=== PATIENT | female | born 1995 | race Caucasian/White ===

== ENCOUNTER 2016-11-30 05:37 | Emergency (ER) | payer MEDICAID, OTHER ==
[2016-11-30 05:45] VITALS: BP 130/85
[2016-11-30] MEDS ORDERED: Ondansetron 4 MG/2 ML SDV IVPUSH ONE (05:54)
[2016-11-30] MEDS ORDERED: Sodium Chloride 0.9% 1,000 ML IV SCH (06:00)
--- NOTE | 2016-11-30 06:02 | EDM.PDOC ---
ED HPI RENAL/ - General Chief Complaint: Genitourinary Problem Stated Complaint: FEVER/BACK PAIN Time Seen by Provider: 11/30/16 05:43 Source of Information: Reports: Patient, Old records, RN notes reviewed History Limitations: Reports: No limitations - History of Present Illness INITIAL COMMENTS - FREE TEXT/NARRATIVE: The patient states that she developed lower back pain about 1-1/2 to 2 days ago. She has had gross hematuria for the past 2 days. She denies urinary symptoms, such as dysuria, urinary frequency, and urinary urgency. She has had chills since yesterday and was found to have a fever of 102.4 here in the ED. She has had nausea, but no vomiting, constipation, or diarrhea. She states that she has had similar symptoms in the past, due to kidney stones. Her LMP was about one month ago, but she states that she is not on her menstrual period. - Related Data Allergies/ADRs: Allergies Allergy/AdvReac Type Severity Reaction Status Date / Time trazodone Allergy Hives Verified 11/30/16 05:46 metoclopramide HCl AdvReac Anxiety Verified 11/30/16 05:46 [From Reglan] Past Medical History Genitourinary History: Reports: Renal calculus [employer] History: Reports: Neurological History: Reports: MS (According to the patient. Untreated) - Past Surgical History HEENT Surgical History: Reports: Tonsillectomy Female Surgical History: Reports: section (x 2), D&C (x 1), Lithotripsy/ESWL (x 3) Social & Family History - Family History Family Medical History: Noncontributory - Tobacco Use Smoking Status *Q: Current Every Day Smoker Years of Tobacco use: 2 Packs/Tins Daily: 0.5 Second Hand Smoke Exposure: Yes - Alcohol Use Alcohol Use History: No Days Per Week of Alcohol Use: 0 - Recreational Drug Use Recreational Drug Use: Yes Drug Use in Last 12 Months: Yes Recreational Drug Type: Reports: Heroin (last 2-3 days ago), Methamphetamine ( last 2 days ago) - Living Situation & Occupation Living situation: Reports: single, with significant other (Boyfriend) Occupation: unemployed ED ROS GENERAL - Review of Systems Review Of Systems: See Below Constitutional: Reports: no symptoms HEENT: Reports: No symptoms Respiratory: Reports: No Symptoms Cardiovascular: Reports: No symptoms Endocrine: Reports: no symptoms GI/Abdominal: Reports: No symptoms : Reports: no symptoms Musculoskeletal: Reports: no symptoms Skin: Reports: no symptoms Neurological: Reports: No Symptoms Psychiatric: Reports: No symptoms Hematologic/Lymphatic: Reports: no symptoms Immunologic: Reports: no symptoms ED EXAM, RENAL/ - Physical Exam Exam: See Below Exam Limited By: No limitations General Appearance: alert, WD/WN, mild distress (Appears uncomfortable) Eye Exam: bilateral eye: EOMI, normal inspection Ears: normal external exam, hearing grossly normal Nose: normal inspection, no blood Throat/Mouth: Normal inspection, Normal lips, Normal voice, No airway compromise Head: atraumatic, normocephalic Neck: normal inspection, full range of motion Respiratory/Chest: no respiratory distress, lungs clear, normal breath sounds, no accessory muscle use, chest non-tender Cardiovascular: normal peripheral pulses, regular rate, rhythm, no gallop, no JVD, no murmur, no rub GI/Abdominal: normal bowel sounds, soft, no organomegaly, no distention, no abnormal bruit, no mass, tender (To the suprapubic and right lower quadrant regions. Essentially nontender elsewhere.) Back Exam: normal inspection, full range of motion, CVA tenderness (L) (Greater on the left than the right), CVA tenderness (R) Extremities: normal inspection, normal range of motion, no pedal edema, normal capillary refill Neurological: alert, oriented, normal cognition, no motor/sensory deficits Psychiatric: normal affect Skin Exam: Warm, Dry, Intact, Normal color, No rash Lymphatic: no adenopathy Course - Vital Signs Last Recorded V/S: Last Vital Signs Temp 39.1 C H 11/30/16 05:41 Pulse 125 H 11/30/16 05:41 Resp 18 11/30/16 05:41 BP 130/85 11/30/16 05:41 Pulse Ox 98 11/30/16 05:41 - Orders/Labs/Meds Orders: Active Orders 24 hr Category Date Time Status CBC WITH MANUAL DIFF [HEME] Stat Lab 11/30/16 05:50 Results COMPREHENSIVE METABOLIC PN,CMP [CHEM] Stat Lab 11/30/16 05:50 Received LIPASE [CHEM] Stat Lab 11/30/16 05:50 Received UA W/MICROSCOPIC [URIN] Stat Lab 11/30/16 06:00 Results Sodium Chloride 0.9% [Normal Saline] 1,000 ml Med 11/30/16 06:00 Active IV ASDIRECTED Medication Orders Sodium Chloride (Normal Saline) 1,000 mls @ 150 mls/hr IV ASDIRECTED GAIL Last Admin: 11/30/16 06:04 Dose: 150 mls/hr Labs: Laboratory Tests 11/30/16 11/30/16 11/30/16 Range/Units 05:50 06:00 06:00 WBC 7.70 (3.98-10.04) K/mm3 RBC 5.10 (3.98-5.22) M/mm3 Hgb 13.9 (11.2-15.7) gm/L Hct 40.6 (34.1-44.9) % MCV 79.6 (79.4-94.8) fl MCH 27.3 (25.6-32.2) pg MCHC 34.2 (32.2-35.5) g/dl RDW Std Deviation 45.7 (36.4-46.3) fL Plt Count 143 L (182-369) K/mm3 MPV 10.2 (9.4-12.3) fl Urine Color Yellow (Yellow) Urine Appearance Slt cloudy H (Clear) Urine pH 6.0 (5.0-8.0) Ur Specific [place] > or = 1.030 (1.005-1.030) Urine Protein 2+ H (Negative) Urine Glucose (UA) Negative (Negative) Urine Ketones 2+ H (Negative) Urine Occult Blood 3+ H (Negative) Urine Nitrite Positive H (Negative) Urine Bilirubin Negative (Negative) Urine Urobilinogen 0.2 (0.2-1.0) Ur Leukocyte Esterase 1+ H (Negative) Urine HCG, Qual Negative (NEGATIVE) Meds: Medications Generic Name Dose Route Start Last Admin Trade Name Freq PRN Reason Stop Dose Admin Sodium Chloride 1,000 mls @ 150 mls/hr 11/30/16 06:00 11/30/16 06:04 Normal Saline IV 150 mls/hr ASDIRECTED GAIL Administration Discontinued Medications Generic Name Dose Route Start Last Admin Trade Name Freq PRN Reason Stop Dose Admin Ketorolac Tromethamine 30 mg 11/30/16 06:10 Toradol IVPUSH 11/30/16 06:11 ONETIME STA Ondansetron HCl 4 mg 11/30/16 05:54 11/30/16 06:04 Zofran IVPUSH 11/30/16 05:55 4 mg ONETIME ONE Administration - Re-Assessments/Exams Free Text/Narrative Re-Assessment/Exam: 11/30/16 05:57 After my history and physical examination, the patient's boyfriend came out to the nursing station and informed me that the patient has been doing heroin, as recently as a few days ago. 11/30/16 06:14 Informed that the patient wants to leave AMA because I did not order or something stronger than the Toradol. She reportedly told the nurse that she is going to [place] and that "next time I will lie, so that I can get what I want. " Given the patient's history of drug abuse, including recent use of heroin, not disclosed by the patient herself, it was my intention to see the patient's urinalysis results before ordering an opioid - if there is blood in the urine, I would likely order a narcotic, as the likelihood of a ureterolith would be high. If there is no blood in the urine, I would prefer to hold off until there is evidence of a painful process. Based on the patient's willingness to leave AMA over not getting narcotics, it appears that the patient is drug seeking. Departure - Departure Time of Disposition: 06:18 Disposition: Against Medical Advice 07 Condition: fair Clinical Impression: Drug-seeking behavior, Fever Referrals: PCP,None [Primary Care Provider] - - My Orders Last 24 Hours: My Active Orders 11/30/16 05:50 CBC WITH MANUAL DIFF [HEME] Stat COMPREHENSIVE METABOLIC PN,CMP [CHEM] Stat LIPASE [CHEM] Stat 11/30/16 06:00 UA W/MICROSCOPIC [URIN] Stat Sodium Chloride 0.9% [Normal Saline] 1,000 ml IV ASDIRECTED - Assessment/Plan Last 24 Hours: My Active Orders 11/30/16 05:50 CBC WITH MANUAL DIFF [HEME] Stat COMPREHENSIVE METABOLIC PN,CMP [CHEM] Stat LIPASE [CHEM] Stat 11/30/16 06:00 UA W/MICROSCOPIC [URIN] Stat Sodium Chloride 0.9% [Normal Saline] 1,000 ml IV ASDIRECTED
[2016-11-30] MEDS ORDERED: Ketorolac 30 MG/ML SDV IVPUSH STA (06:10)
== END 2016-11-30 06:15 | disposition left against medical advice (07) ==
LOC: JD.ED 05:37
DX: Z76.5 Malingerer [conscious simulation] (principal); R50.9 Fever, unspecified; G35 Multiple sclerosis; F17.200 Nicotine dependence, unspecified, uncomplicated; Z88.8 Allergy status to other drugs, medicaments and biological substances
CPT/HCPCS: 36415; 80053; 81001; 81025; 83690; 85025; 96361; 96374; 99284; J2405; J7040; P9612

== ENCOUNTER 2018-10-17 13:30 | Emergency (ER) | payer BC, MEDICAID ==
[2018-10-17 13:39] VITALS: BP 127/86
[2018-10-17] MEDS ORDERED: Sodium Chloride 0.9% 10 ML Syringe FLUSH PRN (13:50)
[2018-10-17] MEDS ORDERED: Sodium Chloride 0.9% 1,000 ML IV SCH (14:00)
--- NOTE | 2018-10-17 15:07 | CT ---
Head CT Technique: Multiple axial sections through the brain were obtained. Intravenous contrast was not utilized. Comparison: Prior head CT exam of 09/06/14. Previous MRI brain of 03/27/15 is also available. Findings: Ventricles along with basal cisterns and sulci over the convexities appear within normal limits for the patient's age. Areas of increase signal noted on previous MRI not well seen on current head CT exam. No evidence of intracranial hemorrhage. No midline shift or mass effect is seen. Bone window settings were reviewed which show no acute calvarial abnormality. Visualized sinuses are clear. Impression: 1. Nothing acute is appreciated on noncontrast head CT study. Areas of increased signal noted on previous MRI are not well seen on current study. MRI could be considered to confirm stability of previous findings. Diagnostic code #1
--- NOTE | 2018-10-17 15:21 | EDM.PDOC ---
ED HPI GENERAL MEDICAL PROBLEM - General Chief Complaint: Neurological Problem Stated Complaint: [facility] Time Seen by Provider: 10/17/18 13:39 Source of Information: Reports: Patient, EMS, Family History Limitations: Reports: No Limitations - History of Present Illness INITIAL COMMENTS - FREE TEXT/NARRATIVE: The patient presents by [facility] for seizure. Her mom witnessed the seizure. It lasted about 4 minutes. The patient was stiff and had some jerking and she was gurgling. When EMS arrived, the seizure was over. This is the patient's second seizure. She had one a couple weeks ago but it did not last this long. She has MS and was seeing Dr Gipson a neurologist in [place] but he moved and she has not seen anyone for about 2 years. She has been in treatment for heroin addiction and just recently got out. She has not had any drugs since treatment. She has no headache, fever, chills, cough, chest pain, shortness of breath, abdominal pain, nausea or vomiting. She is scheduled to see another neurologist November 16. Onset: Sudden Duration: Minutes: Location: Reports: Generalized Severity: Moderate Improves with: Reports: None Worsens with: Reports: None Associated Symptoms: Reports: No Other Symptoms - Related Data Allergies Allergy/AdvReac Type Severity Reaction Status Date / Time trazodone Allergy Hives Verified 10/17/18 13:38 metoclopramide HCl AdvReac Anxiety Verified 10/17/18 13:38 [From Reglan] Home Meds: Home Meds . [No Known Home Meds] 10/17/18 [History] Past Medical History Other HEENT History: HX OF ABSCESSED TOOTH 2012, RECURRENT SINUS INFECTIONS, states "I used to have alot of mono and strep throat." Other Respiratory History: HX OF URI Other Gastrointestinal History: HEMATOCHEZIA 2012 Genitourinary History: Reports: Renal Calculus [employer] History: Reports: Other [employer] History: HX OF X2, CURRENT MISSED AND ONE PAST Other Musculoskeletal History: ARTHRALGIA Neurological History: Reports: MS Psychiatric History: Reports: Anxiety Other Psychiatric History: INSOMNIA Other Hematologic History: during - Past Surgical History HEENT Surgical History: Reports: Tonsillectomy Other GI Surgeries/Procedures: SIGMOIDOSCOPY FLEXIBLE Female Surgical History: Reports: Section, D&C, Lithotripsy/ESWL Social & Family History - Family History Family Medical History: Noncontributory - Tobacco Use Smoking Status *Q: Current Every Day Smoker Years of Tobacco use: 4 Packs/Tins Daily: 0.5 - Caffeine Use Caffeine Use: Reports: Coffee - Recreational Drug Use Recreational Drug Use: Yes Drug Use in Last 12 Months: Yes Recreational Drug Type: Reports: Heroin - Living Situation & Occupation Living situation: Reports: Single, with Significant Other Occupation: Unemployed ED ROS GENERAL - Review of Systems Review Of Systems: See Below Constitutional: Reports: No Symptoms HEENT: Reports: No Symptoms Respiratory: Reports: No Symptoms Cardiovascular: Reports: No Symptoms Endocrine: Reports: No Symptoms GI/Abdominal: Reports: No Symptoms : Reports: No Symptoms Musculoskeletal: Reports: No Symptoms - Physical Exam Exam: See Below Exam Limited By: No Limitations General Appearance: Alert, No Apparent Distress Ears: Normal External Exam Nose: Normal Inspection Throat/Mouth: Normal Inspection Head Exam: Atraumatic, Normocephalic Neck: Normal Inspection Respiratory/Chest: No Respiratory Distress, Lungs Clear, Normal Breath Sounds Cardiovascular: Regular Rate, Rhythm, No Edema, No Murmur GI/Abdominal: Soft, Non-Tender, No Organomegaly, No Mass Neuro Exam (Abbreviated): Alert, Oriented, Other (Generalized weakness) Course - Vital Signs Last Recorded V/S: Last Vital Signs Temp 97.6 F 10/17/18 13:34 Pulse 102 H 10/17/18 13:34 Resp 18 10/17/18 13:34 BP 127/86 10/17/18 13:34 Pulse Ox 99 10/17/18 13:34 - Orders/Labs/Meds Orders: Active Orders 24 hr Category Date Time Status Cardiac Monitoring [RC] . DIRECTED Care 10/17/18 13:50 Active Peripheral IV Care [RC] . DIRECTED Care 10/17/18 13:50 Active Sodium Chloride 0.9% [Normal Saline] 1,000 ml Med 10/17/18 14:00 Active IV ASDIRECTED Sodium Chloride 0.9% [Saline Flush] Med 10/17/18 13:50 Active 10 ml FLUSH ASDIRECTED PRN Peripheral IV Insertion Adult [OM.PC] Stat Oth 10/17/18 13:50 Ordered Medication Orders Sodium Chloride (Normal Saline) 1,000 mls @ 125 mls/hr IV ASDIRECTED GAIL Last Admin: 10/17/18 14:03 Dose: 125 mls/hr Sodium Chloride (Saline Flush) 10 ml FLUSH ASDIRECTED PRN PRN Reason: Keep Vein Open Last Admin: 10/17/18 14:03 Dose: 10 ml Labs: Laboratory Tests 10/17/18 10/17/18 10/17/18 Range/Units 14:05 14:05 14:05 WBC 5.94 (3.98-10.04) K/mm3 RBC 4.73 (3.98-5.22) M/mm3 Hgb 13.4 (11.2-15.7) gm/L Hct 40.4 (34.1-44.9) % MCV 85.4 (79.4-94.8) fl MCH 28.3 (25.6-32.2) pg MCHC 33.2 (32.2-35.5) g/dl RDW Std Deviation 41.5 (36.4-46.3) fL Plt Count 216 (182-369) K/mm3 MPV 9.9 (9.4-12.3) fl Neut % (Auto) 53.0 (34.0-71.1) % Lymph % (Auto) 33.7 (19.3-51.7) % [place] % (Auto) 8.2 (4.7-12.5) % Eos % (Auto) 4.4 (0.7-5.8) Baso % (Auto) 0.5 (0.1-1.2) % Neut # (Auto) 3.15 (1.56-6.13) K/mm3 Lymph # (Auto) 2.00 (1.18-3.74) K/mm3 [place] # (Auto) 0.49 H (0.24-0.36) K/mm3 Eos # (Auto) 0.26 (0.04-0.36) K/mm3 Baso # (Auto) 0.03 (0.01-0.08) K/mm3 Sodium 139 (136-145) mEq/L Potassium 4.0 (3.5-5.1) mEq/L Chloride 102 (98-107) mEq/L Carbon Dioxide 28 (21-32) mEq/L Anion Gap 13.0 (5-15) BUN 10 (7-18) mg/dL Creatinine 0.7 (0.55-1.02) mg/dL Est Cr Clr Drug Dosing 93.51 mL/min Estimated GFR (MDRD) > 60 (>60) mL/min BUN/Creatinine Ratio 14.3 (14-18) Glucose 84 (74-106) mg/dL Calcium 8.6 (8.5-10.1) mg/dL Magnesium 1.9 (1.8-2.4) mg/dl Total Bilirubin 0.4 (0.2-1.0) mg/dL AST 51 H (15-37) U/L ALT 94 H (14-59) U/L Alkaline Phosphatase 96 (46-116) U/L Total Protein 7.2 (6.4-8.2) g/dl Albumin 3.2 L (3.4-5.0) g/dl Globulin 4.0 gm/dL Albumin/Globulin Ratio 0.8 L (1-2) HCG, Qual Negative (NEGATIVE) Meds: Medications Generic Name Dose Route Start Last Admin Trade Name Freq PRN Reason Stop Dose Admin Sodium Chloride 1,000 mls @ 125 mls/hr 10/17/18 14:00 10/17/18 14:03 Normal Saline IV 125 mls/hr ASDIRECTED GAIL Administration Sodium Chloride 10 ml 10/17/18 13:50 10/17/18 14:03 Saline Flush FLUSH 10 ml ASDIRECTED PRN Administration Keep Vein Open - Re-Assessments/Exams Free Text/Narrative Re-Assessment/Exam: 10/17/18 15:41 I ordered an IV saline lock, labs and a CT of her head. The CT shows nothing acute. Her CBC looks good. Her liver enzymes are slightly elevated. Her HCG is negative. She has not had anymore seizure activity. I have ordered an MRI of her brain tomorrow. I will not start any seizure meds at this time. She cannot drive or take a bath or swim. Departure - Departure Time of Disposition: 15:50 Disposition: Home, Self-Care 01 Condition: Good Clinical Impression: Seizure, Multiple sclerosis, primary chronic progressive - Discharge Information *PRESCRIPTION DRUG MONITORING PROGRAM REVIEWED*: Not Applicable *COPY OF PRESCRIPTION DRUG MONITORING REPORT IN PATIENT [facility]: Not Applicable Referrals: PCP,None [Primary Care Provider] - Pretty Harrington PA-C [Ordering Only Provider] - 1 Week Forms: ED Department Discharge Additional Instructions: I have ordered a MR of your brain tomorrow at 9am. Please come early to register. Do not drive or take a bath or swim until cleared by your neurologist. Please return if you are worse. Make sure your are getting enough sleep and do not drink alcohol. These will lower your seizure threshold and you may have another seizure. - My Orders Last 24 Hours: My Active Orders 10/17/18 13:50 Cardiac Monitoring [RC] . DIRECTED Peripheral IV Care [RC] . DIRECTED Sodium Chloride 0.9% [Saline Flush] 10 ml FLUSH ASDIRECTED PRN Peripheral IV Insertion Adult [OM.PC] Stat 10/17/18 14:00 Sodium Chloride 0.9% [Normal Saline] 1,000 ml IV ASDIRECTED - Assessment/Plan Last 24 Hours: My Active Orders 10/17/18 13:50 Cardiac Monitoring [RC] . DIRECTED Peripheral IV Care [RC] . DIRECTED Sodium Chloride 0.9% [Saline Flush] 10 ml FLUSH ASDIRECTED PRN Peripheral IV Insertion Adult [OM.PC] Stat 10/17/18 14:00 Sodium Chloride 0.9% [Normal Saline] 1,000 ml IV ASDIRECTED
== END 2018-10-17 16:15 | disposition home or self-care (01) ==
LOC: JD.ED 13:30
DX: G35 Multiple sclerosis (principal); R56.9 Unspecified convulsions; F17.210 Nicotine dependence, cigarettes, uncomplicated; Z88.8 Allergy status to other drugs, medicaments and biological substances; Z88.5 Allergy status to narcotic agent
CPT/HCPCS: 36415; 70450; 80053; 83735; 84703; 85025; 96360; 96361; 99285; J7040

== ENCOUNTER 2020-12-26 19:00 | Emergency (ER) | payer MEDICAID ==
[2020-12-26 19:41] VITALS: BP 109/75; PULSE 95
--- NOTE | 2020-12-26 19:55 | EDM.PDOC ---
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 This has been going on for a week and she thought this was just a normal period but today she had more bleeding and pain and thought she saw what looked like a small fetus in the toilet. Her LNMP is 11/20/20. She is [id number]. She was lightheaded after she saw the tissue in the toilet. She has no fever, chills, cough, congestion, runny nose, chest pain, shortness of breath, nausea or vomiting. Onset: Gradual Duration: Week(s): Location: Reports: Abdomen, Pelvis Quality: Reports: Other (cramping) Severity: Severe Improves with: Reports: None Worsens with: Reports: None Associated Symptoms: Reports: No Other Symptoms Bilateral Lower Abdominal Pain Score (Numeric/FACES): 7 - Related Data Allergies Allergy/AdvReac Type Severity Reaction Status Date / Time trazodone Allergy Severe Hives Verified 12/26/20 19:41 metoclopramide HCl AdvReac Severe Anxiety Verified 12/26/20 19:41 [From upad] Home Meds: Home Meds . 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: HX OF X2, CURRENT MISSED AND ONE PAST Other Musculoskeletal History: ARTHRALGIA Neurological History: Reports: MS Psychiatric History: Reports: Anxiety Other Psychiatric History: INSOMNIA Other Hematologic History: during - Past Surgical History HEENT Surgical History: Reports: Tonsillectomy Other GI Surgeries/Procedures: SIGMOIDOSCOPY FLEXIBLE Female Surgical History: Reports: Section, D&C, Lithotripsy/ESWL Social & Family History - Family History Family Medical History: No Pertinent Family History - Caffeine Use Caffeine Use: Reports: Coffee - Living Situation & Occupation Living situation: Reports: Single, with Significant Other Occupation: Unemployed ED ROS GENERAL - Review of Systems Review Of Systems: See Below Constitutional: Reports: No Symptoms HEENT: Reports: No Symptoms Respiratory: Reports: No Symptoms Cardiovascular: Reports: No Symptoms Endocrine: Reports: No Symptoms GI/Abdominal: Reports: Abdominal Pain : Reports: Other (bleeding and cramping) Musculoskeletal: Reports: No Symptoms Skin: Reports: No Symptoms ED EXAM - Physical Exam Exam: See Below Exam Limited By: No Limitations General Appearance: Alert, No Apparent Distress Ears: Normal External Exam Nose: Normal Inspection Head: Atraumatic, Normocephalic Neck: Normal Inspection Respiratory/Chest: No Respiratory Distress, Lungs Clear, Normal Breath Sounds Cardiovascular: Regular Rate, Rhythm, No Edema, No Murmur GI/Abdominal Exam: Soft, Non-Tender, No Organomegaly, No Mass (Female) Exam: Vaginal Bleeding (Mild), Other (cervical os is closed) Course - Vital Signs Last Recorded V/S: Last Vital Signs Temp 98.5 F 12/26/20 19:34 Pulse 95 12/26/20 19:34 Resp 18 12/26/20 19:34 BP 109/75 12/26/20 19:34 Pulse Ox 100 12/26/20 19:34 - Orders/Labs/Meds Orders: Active Orders 24 hr Category Date Time Status Pelvic Exam, Set Up [RC] ASDIRECTED Care 12/26/20 19:47 Active OB Transvaginal [US] Stat Exams 12/26/20 19:47 Taken RHOGAM, [RHIG WORKUP, ] [BBK] Stat Lab 12/26/20 21:47 Ordered Labs: Laboratory Tests 12/26/20 12/26/20 12/26/20 Range/Units 20:07 20:07 20:07 WBC 6.23 (3.98-10.04) K/mm3 RBC 3.36 L (3.98-5.22) M/mm3 Hgb 9.6 L D (11.2-15.7) gm/dl Hct 29.0 L (34.1-44.9) % MCV 86.3 (79.4-94.8) fl MCH 28.6 (25.6-32.2) pg MCHC 33.1 (32.2-35.5) g/dl RDW Std Deviation 39.0 (36.4-46.3) fL Plt Count 159 L (182-369) K/mm3 MPV 10.3 (9.4-12.3) fl Neut % (Auto) 74.1 H (34.0-71.1) % Lymph % (Auto) 19.6 (19.3-51.7) % [place] % (Auto) 6.1 (4.7-12.5) % Eos % (Auto) 0 L (0.7-5.8) Baso % (Auto) 0.2 (0.1-1.2) % Neut # (Auto) 4.62 (1.56-6.13) K/mm3 Lymph # (Auto) 1.22 (1.18-3.74) K/mm3 [place] # (Auto) 0.38 H (0.24-0.36) K/mm3 Eos # (Auto) 0.00 L (0.04-0.36) K/mm3 Baso # (Auto) 0.01 (0.01-0.08) K/mm3 Sodium 139 (136-145) mEq/L Potassium 4.3 (3.5-5.1) mEq/L Chloride 103 (98-107) mEq/L Carbon Dioxide 26 (21-32) mEq/L Anion Gap 14.3 (5-15) BUN 18 (7-18) mg/dL Creatinine 0.6 (0.55-1.02) mg/dL Est Cr Clr Drug Dosing 116.50 mL/min Estimated GFR (MDRD) > 60 (>60) mL/min BUN/Creatinine Ratio 30.0 H (14-18) Glucose 127 H (74-106) mg/dL Calcium 8.6 (8.5-10.1) mg/dL Total Bilirubin 0.2 (0.2-1.0) mg/dL AST 11 L (15-37) U/L ALT 17 (14-59) U/L Alkaline Phosphatase 57 (46-116) U/L Total Protein 6.3 L (6.4-8.2) g/dl Albumin 2.7 L (3.4-5.0) g/dl Globulin 3.6 gm/dL Albumin/Globulin Ratio 0.8 L (1-2) HCG, Quant 4308.0 mIU/mL Blood Type 12/26/20 Range/Units 20:07 WBC (3.98-10.04) K/mm3 RBC (3.98-5.22) M/mm3 Hgb (11.2-15.7) gm/dl Hct (34.1-44.9) % MCV (79.4-94.8) fl MCH (25.6-32.2) pg MCHC (32.2-35.5) g/dl RDW Std Deviation (36.4-46.3) fL Plt Count (182-369) K/mm3 MPV (9.4-12.3) fl Neut % (Auto) (34.0-71.1) % Lymph % (Auto) (19.3-51.7) % [place] % (Auto) (4.7-12.5) % Eos % (Auto) (0.7-5.8) Baso % (Auto) (0.1-1.2) % Neut # (Auto) (1.56-6.13) K/mm3 Lymph # (Auto) (1.18-3.74) K/mm3 [place] # (Auto) (0.24-0.36) K/mm3 Eos # (Auto) (0.04-0.36) K/mm3 Baso # (Auto) (0.01-0.08) K/mm3 Sodium (136-145) mEq/L Potassium (3.5-5.1) mEq/L Chloride (98-107) mEq/L Carbon Dioxide (21-32) mEq/L Anion Gap (5-15) BUN (7-18) mg/dL Creatinine (0.55-1.02) mg/dL Est Cr Clr Drug Dosing mL/min Estimated GFR (MDRD) (>60) mL/min BUN/Creatinine Ratio (14-18) Glucose (74-106) mg/dL Calcium (8.5-10.1) mg/dL Total Bilirubin (0.2-1.0) mg/dL AST (15-37) U/L ALT (14-59) U/L Alkaline Phosphatase (46-116) U/L Total Protein (6.4-8.2) g/dl Albumin (3.4-5.0) g/dl Globulin gm/dL Albumin/Globulin Ratio (1-2) HCG, Quant mIU/mL Blood Type A NEGATIVE Meds: Medications Discontinued Medications Generic Name Dose Route Start Last Admin Trade Name Chana PRN Reason Stop Dose Admin Hydromorphone HCl 1 mg 12/26/20 21:02 12/26/20 21:10 Hydromorphone 1 Mg/Ml Syringe IM 12/26/20 21:03 1 mg ONETIME ONE Administration - Re-Assessments/Exams Free Text/Narrative Re-Assessment/Exam: 12/26/20 19:54 I ordered labs, pelvic exam and a transvaginal US. 12/26/20 21:15 The pelvic exam shows a closed cervical os and mild bleeding. Her WBC is normal. Her Hgb was low at 9.6. Her glucose is 127. Her HCG is elevated at 4308. She is A negative. I am waiting for the US report. 12/26/20 21:47 The US shows gestational sac is present containing a yolk sac and pole. No heart rate. Estimated gestational age is 6 weeks/1day. Yolk sac is mildly enlarged. Findings are concerning for a nonviable . Recommend follow-up examination in 7-10 days. She is RH negative. I have ordered rhogam. Departure - Departure Time of Disposition: 21:50 Disposition: Home, Self-Care 01 Condition: Good Clinical Impression: Qualifiers: Weeks of gestation: less than 8 weeks Qualified Code(s): Z3A.01 - Less than 8 weeks gestation of - Discharge Information *PRESCRIPTION DRUG MONITORING PROGRAM REVIEWED*: Not Applicable *COPY OF PRESCRIPTION DRUG MONITORING REPORT IN PATIENT BRITTANI: Not Applicable Referrals: PCP,None [Primary Care Provider] - Jeffy Carranza MD [Physician] - 1 Week Forms: ED Department Discharge Additional Instructions: The US did shows a pole but no heart beat was seen. There is a high chance that you may miscarry. Follow up with Dr Carranza or any of the OB/GYNs in [facility]. Take tylenol as needed for pain. Pelvic rest with no intercourse and no heavy lifting for a couple weeks. Please return if you are worse with more pain or bleeding. Sepsis Event Note (ED) - Evaluation Sepsis Screening Result: No Definite Risk - Focused Exam Vital Signs: Vital Signs Temp Pulse Resp BP Pulse Ox 12/26/20 19:34 98.5 F 95 18 109/75 100 - My Orders Last 24 Hours: My Active Orders 12/26/20 19:47 Pelvic Exam, Set Up [RC] ASDIRECTED OB Transvaginal [US] Stat 12/26/20 21:47 RHOGAM, [RHIG WORKUP, ] [BBK] Stat - Assessment/Plan Last 24 Hours: My Active Orders 12/26/20 19:47 Pelvic Exam, Set Up [RC] ASDIRECTED OB Transvaginal [US] Stat 12/26/20 21:47 RHOGAM, [RHIG WORKUP, ] [BBK] Stat
[2020-12-26] MEDS ORDERED: HYDROmorphone 1 MG/ML Syringe IM ONE (21:02)
--- NOTE | 2020-12-27 08:47 | US ---
First trimester obstetrical ultrasound: Multiple real-time images were obtained both transabdominally and transvaginally. Dates: Current ultrasound: CHRISTINE 08/17/21, gestational age 6 weeks 4 days Single intrauterine gestational sac is seen. Yolk sac and small crown-rump length are seen. There is no evidence of heart activity within the pole. No adnexal abnormalities are appreciated within the maternal pelvis. Impression: 1. Single intrauterine gestational sac. No heart activity is seen. Findings are suspicious for nonviable . If patient does not miscarry, recommend repeat study in 7-10 days to further evaluate. 2. No other acute abnormality is appreciated. Diagnostic code #5 I agree with preliminary report from [facility], finalized on 12/26/20, 10:28 PM CDT
== END 2020-12-26 22:20 | disposition left against medical advice (07) ==
LOC: JD.ED 19:00
DX: O20.9 Hemorrhage in early pregnancy, unspecified (principal); Z88.5 Allergy status to narcotic agent; Z88.8 Allergy status to other drugs, medicaments and biological substances; Z3A.01 Less than 8 weeks gestation of pregnancy
CPT/HCPCS: 36415; 76817; 80053; 84702; 85025; 86900; 86901; 96372; 99284; J1170; 99283

== ENCOUNTER 2022-02-18 18:33 | Emergency (ER) | payer MEDICAID ==
[2022-02-18] MEDS ORDERED: Sodium Chloride 0.9% 10 ML Syringe FLUSH PRN (18:57)
[2022-02-18 19:20] VITALS: BP 150/103; PULSE 79
[2022-02-18 20:12] LABS: ACETAMINOPHEN 0 ug/mL (10-30); ESTIMATED GFR 125 mL/min (>60)
== END 2022-02-18 20:10 | disposition left against medical advice (07) ==
LOC: JD.ED 18:33
DX: R55 Syncope and collapse (principal); F15.10 Other stimulant abuse, uncomplicated; Z88.5 Allergy status to narcotic agent; Z88.8 Allergy status to other drugs, medicaments and biological substances
CPT/HCPCS: 36415; 71045; 71045-26; 80053; 80143; 80179; 80306; 81003; 81025; 83735; 84443; 84484; 85025; 85379; 86140; 93005; 93010; 99284; 99284-25; J3490

== ENCOUNTER 2022-04-13 17:05 | Emergency (ER) | payer MEDICAID ==
[~2022-04-13 17:05] MED LIST: Naloxone 0.4 MG/ML SDV ONE; Naloxone 2 MG/2 ML Syringe ONE
[2022-04-13] MEDS ORDERED: Naloxone 0.4 MG/ML SDV ONE ×2 (17:08→17:09)
[2022-04-13] MEDS ORDERED: Sodium Chloride 0.9% 10 ML Syringe FLUSH PRN (17:15)
[2022-04-13] MEDS ORDERED: Sodium Chloride 0.9% 1,000 ML IV SCH (17:15)
[2022-04-13 17:38] LABS: ESTIMATED GFR 103 mL/min (>60)
[2022-04-13 18:14] VITALS: PULSE 107
== END 2022-04-13 23:41 | disposition home or self-care (01) ==
LOC: JD.ED 17:05 → EDBD 17:05 → MERGE 17:05 → JD.ED 23:41
DX: T40.2X1A Poisoning by other opioids, accidental (unintentional), initial encounter (principal)
CPT/HCPCS: 36415; 36680; 80053; 80306; 80307; 84703; 85025; 92950; 96361; 96374; 99285; J2310; J3490; J7030

== ENCOUNTER 2023-06-06 02:14 | Emergency (ER) | payer SELFPAY ==
[2023-06-06 02:59] LABS: BASOPHILS ABSOLUTE AUTO 0.1 K/mm3 (0.0-0.2); BASOPHILS PERCENT AUTO 0.8 % (0.0-1.0); EOSINOPHILS ABSOLUTE AUTO 0.3 K/mm3 (0.0-0.4); EOSINOPHILS PERCENT AUTO 4.6 % (0.0-6.0); HEMATOCRIT 38.5 % (37.0-47.0); IMMATURE GRAN ABSOLUTE AUTO 0.01 K/mm3 (0.00-0.05); IMMATURE GRAN PERCENT AUTO 0.2 % (0.0-0.4); LYMPHOCYTES ABSOLUTE AUTO 2.1 K/mm3 (1.0-4.8); LYMPHOCYTES PERCENT AUTO 35.1 % (24.0-44.0); MEAN CORPUSCULAR HEMOGLOBIN 27.5 pg (28.0-32.0); MEAN CORPUSCULAR HGB CONC 33.8 g/dl (32.0-36.0); MEAN CORPUSCULAR VOLUME 81.6 fl (83.0-99.0); MEAN PLATELET VOLUME 10.3 fl (9.4-12.3); MONOCYTES ABSOLUTE AUTO 0.5 K/mm3 (0.0-0.8); MONOCYTES PERCENT AUTO 7.8 % (0.0-8.0); NEUTROPHILS ABSOLUTE AUTO 3.1 K/mm3 (1.8-7.7); NEUTROPHILS PERCENT AUTO 51.5 % (41.0-71.0); PLATELET COUNT,PLT 175 K/mm3 (150-400); RED BLOOD CELL COUNT 4.72 M/mm3 (4.10-5.30); WHITE BLOOD CELL COUNT,WBC 5.93 K/mm3 (3.9-11.3)
[2023-06-06 03:21] LABS: ALBUMIN 3.5 g/dl (3.4-5.0); ANION GAP 15.9 (5-15); BILIRUBIN TOTAL 0.5 mg/dL (0.2-1.0); CALCIUM 8.9 mg/dL (8.5-10.1); EST CRCL DRUG DOSING (CG) 65.65 mL/min; MAGNESIUM 1.9 mg/dL (1.8-2.4); POTASSIUM,K 2.9 mEq/L (3.5-5.1); PROTEIN TOTAL,TP 7.2 g/dl (6.4-8.2)
[2023-06-06] MEDS ORDERED: Potassium Chloride 20 MEQ Tab.ER PO ONE ×2 (03:29→03:54)
[2023-06-06] MEDS ORDERED: Magnesium Oxide 400 MG Tab PO ONE (03:29)
[2023-06-06 04:12] VITALS: BP 124/77; PULSE 74
== END 2023-06-06 04:10 | disposition home or self-care (01) ==
LOC: JD.ED 02:14
DX: R55 Syncope and collapse (principal); Z88.8 Allergy status to other drugs, medicaments and biological substances; Z88.6 Allergy status to analgesic agent
CPT/HCPCS: 36415; 80053; 83735; 84703; 85025; 85379; 93005; 99284; A9270; 93010; 99282

== ENCOUNTER 2024-12-13 00:08 | Emergency (ER) | payer SELFPAY ==
[2024-12-13] MEDS: Sodium Chloride 0.9% 2,000 ML IV ONE (00:40)
[2024-12-13] MEDS: Ondansetron 4 MG/2 ML SDV IVPUSH ONE ×2 (00:40)
[2024-12-13 00:45] LABS: BASOPHILS PERCENT AUTO 0.2 % (0.0-1.0); EOSINOPHILS PERCENT AUTO 0.2 % (0.0-6.0); HEMOGLOBIN 12.8 gm/dl (12.0-16.0); IMMATURE GRAN ABSOLUTE AUTO 0.04 K/mm3 (0.00-0.05); IMMATURE GRAN PERCENT AUTO 0.3 % (0.0-0.4); LYMPHOCYTES ABSOLUTE AUTO 1.2 K/mm3 (1.0-4.8); LYMPHOCYTES PERCENT AUTO 9.1 % (24.0-44.0); MEAN CORPUSCULAR HEMOGLOBIN 28.3 pg (28.0-32.0); MEAN CORPUSCULAR HGB CONC 33.7 g/dl (32.0-36.0); MEAN CORPUSCULAR VOLUME 84.1 fl (83.0-99.0); MEAN PLATELET VOLUME 11.3 fl (9.4-12.3); MONOCYTES ABSOLUTE AUTO 0.4 K/mm3 (0.0-0.8); MONOCYTES PERCENT AUTO 3.3 % (0.0-8.0); NEUTROPHILS ABSOLUTE AUTO 11.5 K/mm3 (1.8-7.7); NEUTROPHILS PERCENT AUTO 86.9 % (41.0-71.0); PLATELET COUNT,PLT 208 K/mm3 (150-400); RED BLOOD CELL COUNT 4.52 M/mm3 (4.10-5.30); WHITE BLOOD CELL COUNT,WBC 13.21 K/mm3 (3.9-11.3)
[2024-12-13 01:05] LABS: A/G RATIO 0.6 (1-2); ALBUMIN 2.7 g/dl (3.4-5.0); ANION GAP 15.2 (5-15); BILIRUBIN TOTAL 0.6 mg/dL (0.2-1.0); CALCIUM 9.1 mg/dL (8.5-10.1); CREATININE 0.6 mg/dL (0.55-1.02); EST CRCL DRUG DOSING (CG) 107.45 mL/min; MAGNESIUM 1.6 mg/dL (1.8-2.4); POTASSIUM,K 3.2 mEq/L (3.5-5.1); PROTEIN TOTAL,TP 7.6 g/dl (6.4-8.2)
[2024-12-13] MEDS: Pantoprazole 40 MG Vial IVPUSH ONE (01:19)
[2024-12-13] MEDS: Famotidine 20 MG/2 ML SDV IVPUSH ONE (01:19)
[2024-12-13] MEDS: Acetaminophen 325 MG Tab PO ONE (01:19)
[2024-12-13 01:31] LABS: APPEARANCE,URINE CLOUDY (Clear); BILIRUBIN,URINE 1+ (Negative); COLOR,URINE DARK YELLOW (Yellow); GLUCOSE,URINE NEGATIVE (Negative); KETONES,URINE 4+ (Negative); LEUKOCYTE ESTERASE,URINE 3+ (Negative); NITRITE,URINE NEGATIVE (Negative); OCCULT BLOOD,URINE NEGATIVE (Negative); PH,URINE 7.5 (5.0-8.0); PROTEIN,URINE 2+ (Negative)
[2024-12-13 01:39] LABS: BARBITURATE SCREEN,URINE NEGATIVE (CUTOFF=200); BENZODIAZEPINES SCREEN,URINE PRESUMPTIVE POSITIVE (CUTOFF=150); BUPRENORPHINE SCREEN,URINE NEGATIVE (CUTOFF=10); METHADONE SCREEN, URINE NEGATIVE (CUTOFF=200); METHAMPHETAMINES SCREEN, URINE PRESUMPTIVE POSITIVE (CUTOFF=500); OXYCODONE SCREEN,URINE NEGATIVE (CUT0FF=100); THC SCREEN,URINE 20 NG/ML PRESUMPTIVE POSITIVE (CUTOFF=50)
[2024-12-13 01:47] LABS: AMPHETAMINES SCREEN, URINE PRESUMPTIVE POSITIVE (CUTOFF=500)
[2024-12-13] MEDS: cefTRIAXone 1 GM Vial IVPUSH ONE (02:00)
[2024-12-13] MEDS: Magnesium Sulf/Wat 2 GM/50 mL 2 GM/50 ML BAG IV ONE (02:00)
[2024-12-13] MEDS: Potassium Chloride 10 MEQ in Premix Bag 1 BAG IV ONE (02:00)
[2024-12-13 02:12] LABS: RBC,URINE 0-5 /hpf (0-5); WBC,URINE 20-30 /hpf (0-5)
[2024-12-13 02:13] LABS: BACTERIA,URINE MODERATE /hpf (FEW); EPITHELIAL CELLS,URINE 0-5 /hpf (0-5); MUCUS,URINE MODERATE /hpf (FEW); WBC CLUMPS,URINE FEW /hpf (NOT SEEN)
[2024-12-13 02:14] LABS: TRICHOMONAS,URINE FEW (NOT SEEN)
[2024-12-13 02:57] VITALS: PULSE 102
[2024-12-13] MEDS: metroNIDAZOLE 500 MG Tab PO ONE (03:20)
[2024-12-13] MEDS: Azithromycin 250 MG Tab PO ONE (03:20)
[2024-12-13 03:35] LABS: C. TRACHOMATIS BY PCR NOT DETECTED; N. GONORRHOEAE BY PCR NOT DETECTED
[2024-12-13 03:59] VITALS: BP 130/83
== END 2024-12-13 03:52 | disposition home or self-care (01) ==
LOC: JD.ED 00:08
DX: O21.0 Mild hyperemesis gravidarum (principal); O98.313 Other infections with a predominantly sexual mode of transmission complicating pregnancy, third trimester; O23.43 Unspecified infection of urinary tract in pregnancy, third trimester; O99.323 Drug use complicating pregnancy, third trimester; A59.9 Trichomoniasis, unspecified; F19.10 Other psychoactive substance abuse, uncomplicated; Z3A.34 34 weeks gestation of pregnancy; Z88.8 Allergy status to other drugs, medicaments and biological substances; Z87.891 Personal history of nicotine dependence
CPT/HCPCS: 36415; 76816; 76818; 76818-26; 80053; 80306; 80307; 81001; 81515; 82550; 83690; 83735; 85025; 87428-QW; 87491; 87591; 96361; 96365; 96368; 96375; 99283; 99284-25; A9270-GY; J0696; J2405; J2470; J3475; J3480; J7030

== ENCOUNTER 2025-01-17 14:09 | Inpatient (IN) | payer MEDICAID ==
[~2025-01-17 14:09] MED LIST changes: +Bupivacaine 0.25% 10 ML SDV ONE; -Naloxone 0.4 MG/ML SDV ONE; -Naloxone 2 MG/2 ML Syringe ONE
[2025-01-17] MEDS ORDERED: Sodium Chloride 0.9% 10 ML Syringe FLUSH PRN ×2 (14:19→16:28)
[2025-01-17] MEDS: Lactated Ringers 1,000 ML IV SCH (15:00)
[2025-01-17 15:10] LABS: BASOPHILS PERCENT AUTO 0.3 % (0.0-1.0); EOSINOPHILS ABSOLUTE AUTO 0.1 K/mm3 (0.0-0.4); EOSINOPHILS PERCENT AUTO 1.1 % (0.0-6.0); HEMATOCRIT 36.2 % (37.0-47.0); HEMOGLOBIN 12.1 gm/dl (12.0-16.0); IMMATURE GRAN ABSOLUTE AUTO 0.03 K/mm3 (0.00-0.05); IMMATURE GRAN PERCENT AUTO 0.3 % (0.0-0.4); LYMPHOCYTES ABSOLUTE AUTO 2.1 K/mm3 (1.0-4.8); LYMPHOCYTES PERCENT AUTO 20.1 % (24.0-44.0); MEAN CORPUSCULAR HEMOGLOBIN 28.2 pg (28.0-32.0); MEAN CORPUSCULAR HGB CONC 33.4 g/dl (32.0-36.0); MEAN CORPUSCULAR VOLUME 84.4 fl (83.0-99.0); MEAN PLATELET VOLUME 11.9 fl (9.4-12.3); MONOCYTES ABSOLUTE AUTO 0.6 K/mm3 (0.0-0.8); MONOCYTES PERCENT AUTO 5.8 % (0.0-8.0); NEUTROPHILS ABSOLUTE AUTO 7.4 K/mm3 (1.8-7.7); NEUTROPHILS PERCENT AUTO 72.4 % (41.0-71.0); PLATELET COUNT,PLT 143 K/mm3 (150-400); RED BLOOD CELL COUNT 4.29 M/mm3 (4.10-5.30); WHITE BLOOD CELL COUNT,WBC 10.26 K/mm3 (3.9-11.3)
[2025-01-17 15:20] LABS: BARBITURATE SCREEN,URINE NEGATIVE (CUTOFF=200); BENZODIAZEPINES SCREEN,URINE PRESUMPTIVE POSITIVE (CUTOFF=150); BUPRENORPHINE SCREEN,URINE NEGATIVE (CUTOFF=10); METHADONE SCREEN, URINE PRESUMPTIVE POSITIVE (CUTOFF=200); METHAMPHETAMINES SCREEN, URINE NEGATIVE (CUTOFF=500); OXYCODONE SCREEN,URINE NEGATIVE (CUT0FF=100); THC SCREEN,URINE 20 NG/ML NEGATIVE (CUTOFF=50)
[2025-01-17 15:25] LABS: PROTEIN CREATININE RATIO,URINE 251.9 mg/g (0-149); PROTEIN,URINE RANDOM 20.4 mg/dL (0.0-11.8)
[2025-01-17 15:30] LABS: A/G RATIO 0.5 (1-2); ALBUMIN 2.3 g/dl (3.4-5.0); ANION GAP 11.8 (5-15); BILIRUBIN TOTAL 0.3 mg/dL (0.2-1.0); CALCIUM 8.4 mg/dL (8.5-10.1); CREATININE 0.6 mg/dL (0.55-1.02); EST CRCL DRUG DOSING (CG) 107.45 mL/min; POTASSIUM,K 3.8 mEq/L (3.5-5.1); PROTEIN TOTAL,TP 6.7 g/dl (6.4-8.2)
[2025-01-17 15:49] LABS: AMPHETAMINES SCREEN, URINE NEGATIVE (CUTOFF=500)
[2025-01-17 16:17] LABS: BILIRUBIN,URINE NEGATIVE (Negative); COLOR,URINE YELLOW (Yellow); GLUCOSE,URINE NEGATIVE (Negative); KETONES,URINE NEGATIVE (Negative); LEUKOCYTE ESTERASE,URINE TRACE (Negative); NITRITE,URINE NEGATIVE (Negative); OCCULT BLOOD,URINE NEGATIVE (Negative); PH,URINE 6.5 (5.0-8.0); PROTEIN,URINE NEGATIVE (Negative); UROBILINOGEN,URINE 0.2 (0.2-1.0)
[2025-01-17] MEDS ORDERED: Ondansetron 4 MG/2 ML SDV IVPUSH PRN (16:28)
[2025-01-17] MEDS ORDERED: Lactated Ringers 1,000 ML IV SCH (16:30)
[2025-01-17 16:55] LABS: APPEARANCE,URINE SLT CLOUDY (Clear)
[2025-01-17 16:56] LABS: BACTERIA,URINE MODERATE /hpf (FEW); MUCUS,URINE MODERATE /hpf (FEW); RBC,URINE 0-5 /hpf (0-5)
[2025-01-17] MEDS: Labetalol 100 MG/20 ML MDV IVPUSH ONE (17:53)
[2025-01-17] MEDS ORDERED: Ropivacaine 0.5% 5 MG/ML 30 ML SDV ONE (18:15)
[2025-01-17] MEDS ORDERED: Morphine PF 10 MG/10 ML SDV ONE (18:15)
[2025-01-17] MEDS: Labetalol 100 MG Tab PO ONE ×2 (18:34→23:00)
[2025-01-17] MEDS ORDERED: ceFAZolin 2 GM Vial ONE (19:00)
[2025-01-17] MEDS ORDERED: Lactated Ringers 1,000 ML ONE (19:32)
[2025-01-17] MEDS ORDERED: Ketorolac 30 MG/ML SDV ONE (20:23)
[2025-01-17] MEDS ORDERED: Naloxone 0.4 MG/ML SDV IVPUSH PRN (20:35)
[2025-01-17] MEDS ORDERED: Simethicone 80 MG Tab.Chew PO PRN (20:35)
[2025-01-17] MEDS ORDERED: ePHEDrine 50 MG/ML SDV IVPUSH PRN (20:35)
[2025-01-17] MEDS ORDERED: Dextrose 5%-Lactated Ringers 1,000 ML IV SCH (20:45)
[2025-01-17] MEDS: Ibuprofen 800 MG Tab PO SCH (20:45)
[2025-01-17] MEDS: Sodium Chloride 0.9% 10 ML Syringe FLUSH SCH (23:00)
[2025-01-17] MEDS: diphenhydrAMINE 50 MG/ML SDV IVPUSH PRN (23:00)
[2025-01-18] MEDS: Acetaminophen 325 MG Tab PO ONE (00:33)
[2025-01-18] MEDS: Sennosides 8.6 MG Tab PO SCH (00:46)
[2025-01-18] MEDS: oxyCODONE 5 MG Tab PO PRN (01:57)
[2025-01-18] MEDS: diphenhydrAMINE 50 MG/ML SDV IVPUSH PRN (04:29)
[2025-01-18 05:36] LABS: POTASSIUM,K 3.7 mEq/L (3.5-5.1)
[2025-01-18 05:37] LABS: A/G RATIO 0.5 (1-2); ALBUMIN 1.7 g/dl (3.4-5.0); ANION GAP 12.7 (5-15); BILIRUBIN TOTAL 0.2 mg/dL (0.2-1.0); CALCIUM 8.2 mg/dL (8.5-10.1); CREATININE 0.5 mg/dL (0.55-1.02); EST CRCL DRUG DOSING (CG) 128.94 mL/min; PROTEIN TOTAL,TP 5.2 g/dl (6.4-8.2)
[2025-01-18 05:48] LABS: HEMATOCRIT 29.9 % (37.0-47.0); MEAN CORPUSCULAR HEMOGLOBIN 27.8 pg (28.0-32.0); MEAN CORPUSCULAR HGB CONC 32.8 g/dl (32.0-36.0); MEAN CORPUSCULAR VOLUME 84.7 fl (83.0-99.0); MEAN PLATELET VOLUME 12.2 fl (9.4-12.3); PLATELET COUNT,PLT 129 K/mm3 (150-400); RED BLOOD CELL COUNT 3.53 M/mm3 (4.10-5.30); WHITE BLOOD CELL COUNT,WBC 9.11 K/mm3 (3.9-11.3)
[2025-01-18] MEDS: Acetaminophen 325 MG Tab PO SCH ×2 (06:09→15:48)
[2025-01-18 06:14] LABS: HEMOGLOBIN 9.8 gm/dl (12.0-16.0)
[2025-01-18] MEDS: Prenatal Multivitamin with Calcium/Folic Acid/Iron Tab PO SCH (08:18)
[2025-01-18] MEDS: Labetalol 100 MG Tab PO SCH ×2 (08:18→20:42)
[2025-01-18] MEDS ORDERED: Labetalol 100 MG Tab PO SCH (09:00)
[2025-01-18] MEDS: FLUoxetine 20 MG Cap PO SCH (09:08)
[2025-01-18] MEDS: Citric Acid/Sodium Citrate Solution 30 ML Cup PO ONE (09:13)
[2025-01-18] MEDS: Methadone 5 MG Tab PO SCH (09:27)
[2025-01-18] MEDS: Ferrous Sulfate 324 MG Tab.EC PO SCH ×2 (10:41→15:48)
[2025-01-18 13:09] LABS: GROUP B STREP BY PCR NEGATIVE (NEGATIVE)
[2025-01-18] MEDS: diphenhydrAMINE 25 MG Cap PO PRN (14:23)
[2025-01-18] MEDS: ceFAZolin 2 GM in Sodium Chloride 0.9% 50 ML IV ONE (15:47)
[2025-01-18] MEDS: Oxytocin/0.9 % Sodium Chloride 30 UNIT/500 ML BAG IV ONE (15:47)
[2025-01-18] MEDS: Sodium Chloride 0.9% 10 ML Syringe FLUSH SCH (15:48)
[2025-01-18] MEDS ORDERED: FLUoxetine 20 MG Cap PO SCH (21:00)
[2025-01-19 13:45] VITALS: BP 137/96; PULSE 91
[2025-01-19 15:47] LABS: HCV AB BY CIA INTERP High Pos (Negative); HEPC AB BY CIA INDEX >11.00 IV
[2025-01-21 04:42] LABS: HCV QNT BY NAAT (IU/ML) 179000 IU/mL; HCV QNT BY NAAT (LOG IU/ML) 5.25 log IU/mL; HCV QNT BY NAAT INTERP Detected (Not Detected)
== END 2025-01-19 13:15 | disposition home or self-care (01) | DRG 787 ==
LOC: JD.OB 14:09
PROVIDERS: ADMIT Obstetrics & Gynecology; ATTEND Obstetrics & Gynecology
PROC: 3E0R3BZ Introduction of Anesthetic Agent into Spinal Canal, Percutaneous Approach (ICD-10-PCS; principal; 2025-01-17 19:00)
PROC: 10D00Z1 Extraction of Products of Conception, Low, Open Approach (ICD-10-PCS; principal; 2025-01-17 19:00)
PROC: 00HU33Z Insertion of Infusion Device into Spinal Canal, Percutaneous Approach (ICD-10-PCS; principal; 2025-01-17 19:00)
PROC: 3E0334Z Introduction of Serum, Toxoid and Vaccine into Peripheral Vein, Percutaneous Approach (ICD-10-PCS; 2025-01-18)
DX: O34.211 Maternal care for low transverse scar from previous cesarean delivery (principal); D62 Acute posthemorrhagic anemia; O99.324 Drug use complicating childbirth; O36.0130 Maternal care for anti-D [Rh] antibodies, third trimester, not applicable or unspecified; O99.354 Diseases of the nervous system complicating childbirth; O10.02 Pre-existing essential hypertension complicating childbirth; O98.42 Viral hepatitis complicating childbirth; F11.20 Opioid dependence, uncomplicated; Z3A.38 38 weeks gestation of pregnancy; Z37.0 Single live birth; O99.02 Anemia complicating childbirth; O77.0 Labor and delivery complicated by meconium in amniotic fluid; O99.892 Other specified diseases and conditions complicating childbirth; G35 Multiple sclerosis; B19.20 Unspecified viral hepatitis C without hepatic coma; O99.344 Other mental disorders complicating childbirth; R00.1 Bradycardia, unspecified; F41.9 Anxiety disorder, unspecified; F32.A Depression, unspecified; Z67.11 Type A blood, Rh negative
CPT/HCPCS: 01961; 36415; 59025; 80053; 80306; 81001; 82570; 84156; 85025; 85027; 85461; 86592; 86803; 86850; 86900; 86901; 87522; 87653; 94762; A9270-GY; J0665; J1200; J1885; J1920; J2274; J2791; J2795; J7120